=== PATIENT | male | born 1945 | race Caucasian/White ===

== ENCOUNTER → 2025-04-14 | Outpatient (CLI) | payer OTHER ==
[~2025-04-14] MED LIST: IOHEXOL 350 MG/ML 100ML INFUS..BTL IV ONE
--- NOTE | 2025-04-20 21:26 | CARDIOLOGY ---
RAD REPORT: [facility] CT ANGIO RADIOLOGY REPORT: CORONARY CT ANGIOGRAPHY DATE: Apr 20, 2025 QUALITY: Excellent CLINICAL HISTORY AND INDICATION: [ NSVT ] TECHNIQUE: After obtaining a preliminary foxer image, contrast imaging performed on an Aquillon [id number] scanner. A dedicated, limited window, coronary imaging protocol was used, with single breath-hold, retrospective ECG gating, and automated arrhythmia rejection. 100 cc of low osmolar contrast agent: Omnipaque 350 was delivered via a 18-gauge IV catheter in the right antecubital fossa, using a power injector and followed by 60 cc of normal saline bolus as a chaser. Collimated images were reformatted at 0.5 mm intervals, and sent to an offline independent workstation for interpretation, using 3D anatomic reconstructions: Curved multiplanar reconstructions, maximum intensity projections, and multiplanar imaging. No metoprolol was administered prior to scanning due to low baseline heart rate. No SL nitroglycerin was given. CORONARY ARTERY DESCRIPTIONS: The coronary arteries arise in normal position. Left main coronary artery: Normal caliber vessel that bifurcates into the LAD and LCx. Short left main and heavily calcified with >50% stenosis. Left anterior descending coronary artery: Normal caliber vessel and gives rise to diagonal and septal branches. LAD is heavily calcified. 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 Left circumflex coronary artery: Normal caliber, nondominant and gives rise to a large OM branch. LCx is heavily calcified diffusely. ENVELOPE FOLDING MACHINE OPERATOR proximal LCx. Right coronary artery: Large, dominant vessel giving rise to the PL and PDA branches. Diffusely and heavily calcified. ENVELOPE FOLDING MACHINE OPERATOR of the RCA. CAD-RADs: 5, ENVELOPE FOLDING MACHINE OPERATOR. Thoracic Aorta: Normal diameter. Judy Pantoja MD Cardiovascular Disease [facility] [address] JUDY PANTOJA MD Apr 20, 2025 21:26
== END | disposition home or self-care (01) ==
LOC: RAH 08:14
PROVIDERS: ATTEND Internal Medicine Cardiovascular Disease
DX: I47.29 Other ventricular tachycardia (principal); I25.10 Atherosclerotic heart disease of native coronary artery without angina pectoris
CPT/HCPCS: 75574; Q9967